=== PATIENT | female | born 1990 | race Caucasian/White ===

== ENCOUNTER 2017-05-23 06:07 | Inpatient (IN) | payer MEDICAID ==
[~2017-05-23] VITALS: Ht 167.6 cm; Wt 104.3 kg
[2017-05-23] MEDS ORDERED: LACTATED RINGERS 1,000 ML IV SCH ×2 (06:21→06:30)
[2017-05-23] MEDS ORDERED: LEVO25TA2 PO (06:23)
[2017-05-23] MEDS ORDERED: PNV1TABL76 MT (06:23)
[2017-05-23] MEDS ORDERED: BUTORPHANOL TARTRATE 2 MG/ML VIAL IV PRN (06:30)
[2017-05-23] MEDS ORDERED: LIDOCAINE HCL 1% 20ML VIAL (Pyxis) INJ INFIL SCH (06:30)
[2017-05-23] MEDS ORDERED: NALOXONE HCL 0.4 MG/ML 1ML VIAL IM PRN (06:30)
[2017-05-23] MEDS ORDERED: METHYLERGONOVINE MALEATE 0.2 MG/ML IM PRN ×2 (06:30→08:45)
[2017-05-23] MEDS ORDERED: PENICILLIN G POTASSIUM 5 MMU in DEXT 5% WATER 100 ML IV SCH (06:30)
[2017-05-23] MEDS ORDERED: CARBOPROST TROMETHAMINE 250 MCG/ML AMPUL IM PRN (06:30)
[2017-05-23 06:41] LABS: BASOPHILS % 0.3 % (0.0-2.0); EOSINOPHILS % 0.1 % (0.0-5.0); HEMATOCRIT. 35.4 % (36.0-48.0); HEMOGLOBIN. 11.6 g/dL (12.0-16.0); LYMPHOCYTES % 18.6 % (20.0-50.0); MEAN CORPUSCULAR HEMOGLOBIN 25.6 pg (28.0-32.0); MEAN CORPUSCULAR VOLUME 78.1 fL (81.0-99.0); MEAN PLATELET VOLUME 7.7 fl (7.4-10.4); MONOCYTES % 4.7 % (2.0-8.0); NEUTROPHILS % 76.3 % (40.0-76.0); PLATELET 500 x1000/uL (130-400); RED BLOOD CELL COUNT 4.54 mill/uL (4.2-5.4); RED CELL DISTRIBUTION WIDTH 14.4 % (11.6-14.6)
[2017-05-23 06:46] LABS: CLARITY URINE CLOUDY (CLEAR); COLOR URINE YELLOW (YELLOW); GLUCOSE URINE NEGATIVE (NEGATIVE); KETONES URINE 4+ (NEGATIVE); LEUKOCYTE ESTERASE URINE 3+ (NEGATIVE); NITRITE URINE POSITIVE (NEGATIVE); OCCULT BLOOD URINE 3+ (NEGATIVE); PROTEIN URINE 1+ (NEGATIVE); SPECIFIC GRAVITY URINE 1.023 (1.005-1.030)
[2017-05-23 06:49] LABS: INR 0.9; PARTIAL THROMBOPLASTIN TIME 24.6 sec (23.4-31.0); PROTHROMBIN TIME 9.5 sec (9.4-11.6)
[2017-05-23 06:59] LABS: *AMPHETAMINES SCREEN URINE NEGATIVE (NEGATIVE); *BARBITURATES SCREEN URINE NEGATIVE (NEGATIVE); *BENZODIAZEPINES SCREEN URINE NEGATIVE (NEGATIVE); *COCAINE SCREEN URINE NEGATIVE (NEGATIVE); CANNABINOID URINE SCREEN NEGATIVE (NEGATIVE); METHADONE URINE SCREEN NEGATIVE (NEGATIVE); OPIATES URINE SCREEN NEGATIVE (NEGATIVE); PHENCYCLIDINE URINE SCREEN NEGATIVE (NEGATIVE)
[2017-05-23] MEDS: DEXT 5%/LR + PITOCIN 20UNITS/L 1,000 ML IV SCH ×2 (07:55→09:06)
[2017-05-23 08:06] LABS: HEPATITIS B SURFACE ANTIGEN NEGATIVE
[2017-05-23] MEDS ORDERED: DEXT 5%/LR + PITOCIN 20UNITS/L 1,000 ML IV SCH (08:31)
[2017-05-23] MEDS ORDERED: IBUPROFEN 400MG TABLET PO PRN (08:45)
[2017-05-23] MEDS ORDERED: LANOLIN OINT 0.25 GM TUBE TOP PRN (08:45)
[2017-05-23] MEDS ORDERED: RHO(D) IMMUNE GLOBULIN 300 MCG/SYR IM PRN (08:45)
[2017-05-23] MEDS: IBUPROFEN 800MG TABLET PO PRN ×2 (08:50→15:57)
[2017-05-23 10:00] VITALS: BP 95/74
[2017-05-23] MEDS ORDERED: PENICILLIN G POTASSIUM 2.5 MMU in DEXTROSE 5% WATER 50 ML IV SCH (11:00)
[2017-05-23] MEDS: HYDROCODONE/ACETAMINOPHEN 5/325MG TABLET PO PRN (11:04)
[2017-05-23 11:30] VITALS: BP 113/77
[2017-05-23 16:05] VITALS: BP 112/57
[2017-05-23 20:00] VITALS: BP 121/64
[2017-05-23] MEDS ORDERED: LEVOTHYROXINE SODIUM 25MCG TABLET PO NR (20:30)
[2017-05-23] MEDS: PRENATAL VIT/FE FUMARATE/FA TABLET PO SCH (21:02)
[2017-05-24 04:00] VITALS: BP 115/65
[2017-05-24 07:00] LABS: BASOPHILS % 0.4 % (0.0-2.0); EOSINOPHILS % 0.3 % (0.0-5.0); HEMATOCRIT. 28.4 % (36.0-48.0); HEMOGLOBIN. 9.3 g/dL (12.0-16.0); LYMPHOCYTES % 26.1 % (20.0-50.0); MEAN CORPUSCULAR HEMOGLOBIN 25.7 pg (28.0-32.0); MEAN CORPUSCULAR VOLUME 78.5 fL (81.0-99.0); MONOCYTES % 6.3 % (2.0-8.0); NEUTROPHILS % 66.9 % (40.0-76.0); PLATELET 370 x1000/uL (130-400); RED BLOOD CELL COUNT 3.62 mill/uL (4.2-5.4); RED CELL DISTRIBUTION WIDTH 14.5 % (11.6-14.6)
[2017-05-24] MEDS: PRENATAL VIT/FE FUMARATE/FA TABLET PO SCH (07:49)
[2017-05-24] MEDS: LEVOTHYROXINE SODIUM 25MCG TABLET PO SCH (07:49)
[2017-05-24 08:19] VITALS: BP 118/65
[2017-05-24] MEDS: IBUPROFEN 800MG TABLET PO PRN ×2 (11:37→18:35)
[2017-05-24 16:32] VITALS: BP 123/64
[2017-05-24 23:40] VITALS: BP 128/84
[2017-05-24] MEDS: HYDROCODONE/ACETAMINOPHEN 5/325MG TABLET PO PRN (23:46)
[2017-05-25] MEDS: LEVOTHYROXINE SODIUM 25MCG TABLET PO SCH (06:34)
[2017-05-25] MEDS: IBUPROFEN 800MG TABLET PO PRN (06:41)
[2017-05-25 08:00] VITALS: BP 126/69
== END 2017-05-25 10:50 | disposition home or self-care (01) | DRG 560 ==
LOC: OBSVTOIN 06:07 → L&D 06:07 → 7EST PP/OB 10:31
PROVIDERS: ADMIT Obstetrics & Gynecology; ATTEND Obstetrics & Gynecology
PROC: 0KQM0ZZ Repair Perineum Muscle, Open Approach (ICD-10-PCS; 2017-05-23)
PROC: 10E0XZZ Delivery of Products of Conception, External Approach (ICD-10-PCS; principal; 2017-05-23 07:37)
DX: O99.824 Streptococcus B carrier state complicating childbirth (principal); D62 Acute posthemorrhagic anemia; O69.81X0 Labor and delivery complicated by cord around neck, without compression, not applicable or unspecified; O99.03 Anemia complicating the puerperium; O70.1 Second degree perineal laceration during delivery; Z3A.38 38 weeks gestation of pregnancy; Z37.0 Single live birth
CPT/HCPCS: 36415; 80305; 81001; 85025; 85610; 85730; 86592; 86703; 86762; 86850; 86900; 87077; 87086; 87186; 87340; J2540; J2590; J3490; J7060; J7120

== ENCOUNTER 2022-08-14 02:34 | Emergency (ER) | payer MEDICAID ==
[~2022-08-14] VITALS: Ht 175.3 cm; Wt 118.0 kg
[~2022-08-14 02:34] MED LIST: LEVO25TA2 PO; PNV1TABL76 MT
[2022-08-14 02:42] VITALS: BP 162/99
[2022-08-14] MEDS ORDERED: ONDANSETRON HCL 4MG/2ML INJ IV STA (03:09)
[2022-08-14] MEDS ORDERED: FAMOTIDINE 20MG/2ML VIAL IV ONE (03:15)
[2022-08-14] MEDS ORDERED: DEXAMETHASONE 10 MG/ML VIAL IV ONE (03:15)
[2022-08-14] MEDS ORDERED: DIPHENHYDRAMINE 50MG/ML VIAL IV ONE (03:15)
[2022-08-14] MEDS ORDERED: SODIUM CHLORIDE 0.9% 1,000 ML IV ONE (03:15)
[2022-08-14 03:32] LABS: BASOPHILS % 0.6 % (0.0-2.0); EOSINOPHILS % 1.3 % (0.0-5.0); HEMATOCRIT. 38.7 % (36.0-48.0); HEMOGLOBIN. 12.8 g/dL (12.0-16.0); LYMPHOCYTES % 28.2 % (20.0-50.0); MEAN CORPUSCULAR VOLUME 81.4 fL (81.0-99.0); MEAN PLATELET VOLUME 7.7 fl (7.4-10.4); MONOCYTES % 6.7 % (2.0-8.0); NEUTROPHILS % 63.2 % (40.0-76.0); PLATELET 354 x1000/uL (130-400); RED BLOOD CELL COUNT 4.75 mill/uL (4.2-5.4); RED CELL DISTRIBUTION WIDTH 15.6 % (11.6-14.6)
[2022-08-14 03:42] LABS: CHLORIDE 104 mEq/L (98-107)
[2022-08-14] MEDS ORDERED: CEPH500C2 MT (06:19)
[2022-08-14] MEDS ORDERED: DIPH25CA83 MT (06:19)
== END 2022-08-14 06:52 | disposition home or self-care (01) ==
LOC: ER 02:34
DX: K12.2 Cellulitis and abscess of mouth (principal); E03.9 Hypothyroidism, unspecified
CPT/HCPCS: 36415; 71045; 80048; 85025; 93005; 96361; 96374; 96375; 99291; J1100; J1200; J2405; J3490; J7030

== ENCOUNTER 2022-08-30 18:27 | Emergency (ER) | payer MEDICAID, OTHER ==
[~2022-08-30] VITALS: Ht 170.2 cm; Wt 121.0 kg
[~2022-08-30 18:27] MED LIST changes: +CEPH500C2 MT; +DIPH25CA83 MT
[2022-08-30 18:56] VITALS: BP 150/73
== END 2022-08-31 | disposition left against medical advice (07) ==
LOC: ER 18:27
DX: Z53.21 Procedure and treatment not carried out due to patient leaving prior to being seen by health care provider (principal)